=== PATIENT | male | born 1975 | race Caucasian/White ===

== ENCOUNTER 2017-04-21 11:33 | Emergency (ER) | payer OTHER ==
[2017-04-21 11:42] VITALS: TEMP 98.4; BMI 34.3
--- NOTE | 2017-04-21 12:27 | PDOC ---
History of Present Illness - General History Source: Patient, Old Records Exam Limitations: No Limitations <Lanny Calhoun - Last Filed: 04/21/17 16:12> - General History Source: Patient Exam Limitations: No Limitations - History of Present Illness Initial Comments: 04/21/17 12:36 The patient is a 42-year-old man, [employer] employee with a significant past medical history of hypercholesterolemia (diet controlled) who presents to the emergency department with complaints of shortness of breath since yesterday. He states that last night he suddenly felt short of breath with associated palpitations. He admits that he has a at home and has been drinking more coffee than usual, to help stay up and take care of his . He notes that his shortness of breath and palpitations are not triggered by exertional activity and come up abrupt, even at rest. He currently reports feeling mildly short of breath. No recent cough, fever, chills, recent travel. No chest pain, lightheadedness, dizziness. He denies fever, chills, cough, hemoptysis, diaphoresis, headache. He denies jaw/ back pain lower extremity pain/swelling, calf tenderness/pain He denies recent travel, recent surgery, recent immobilization. Allergies: No Known Drug Allergies Past surgical History: None reported Social History: Hookah smoker. Occasional EtOH use. No recreational drug use. <France Robertson - Last Filed: 04/21/17 16:15> - General Chief Complaint: Blood Pressure Problem Stated Complaint: HEART PALPITATIONS, EMPLOYEE Time Seen by Provider: 04/21/17 12:06 Past History - Past Medical History Other medical history: NONE - Psycho/Social/Smoking Cessation Hx Anxiety: No Suicidal Ideation: No Smoking History: Never smoked Have you smoked in the past 12 months: No Information on smoking cessation initiated: No Hx Alcohol Use: No Substance Use Type: None <Lanny Calhoun - Last Filed: 04/21/17 16:12> <France Robertson - Last Filed: 04/21/17 16:15> - Past Medical History Allergies/Adverse Reactions: Allergies Allergy/AdvReac Type Severity Reaction Status Date / Time No Known Allergies Allergy Verified 04/21/17 11:40 Review of Systems - Review of Systems Able to Perform ROS?: Yes Comments:: 04/21/17 12:36 GENERAL/CONSTITUTIONAL: No fever or chills. No weakness. HEAD, EYES, EARS, NOSE AND THROAT: No change in vision. No ear pain or discharge. No sore throat. CARDIOVASCULAR: Yes: Shortness of Breath. Palpitations. No chest pain. RESPIRATORY: No cough, wheezing, or hemoptysis. GASTROINTESTINAL: No nausea, vomiting, diarrhea or constipation. GENITOURINARY: No dysuria, frequency, or change in urination. MUSCULOSKELETAL: No joint or muscle swelling or pain. No neck or back pain. SKIN: No rash NEUROLOGIC: No headache, vertigo, loss of consciousness, or change in strength/ sensation. ENDOCRINE: No increased thirst. No abnormal weight change. HEMATOLOGIC/LYMPHATIC: No anemia, easy bleeding, or history of blood clots. ALLERGIC/IMMUNOLOGIC: No hives or skin allergy. <France Robertson - Last Filed: 04/21/17 16:15> *Physical Exam - Vital Signs Last Vital Signs Temp Pulse Resp BP Pulse Ox 98.4 F 81 18 157/109 100 04/21/17 11:41 04/21/17 11:41 04/21/17 11:41 04/21/17 11:41 04/21/17 11:41 <Lanny Calhoun - Last Filed: 04/21/17 16:12> - Vital Signs Last Vital Signs Temp Pulse Resp BP Pulse Ox 98.4 F 81 18 157/109 100 04/21/17 11:41 04/21/17 11:41 04/21/17 11:41 04/21/17 11:41 04/21/17 11:41 - Physical Exam Comments: 04/21/17 12:36 GENERAL: Awake, alert, and fully oriented, in no acute distress HEAD: No signs of trauma EYES: PERRLA, EOMI, sclera anicteric, conjunctiva clear ENT: Auricles normal inspection, hearing grossly normal, nares patent, oropharynx clear without exudates. Moist mucosa NECK: Normal ROM, supple, no lymphadenopathy, JVD, or masses LUNGS: Breath sounds equal, clear to auscultation bilaterally. No wheezes, and no crackles HEART: Regular rate and rhythm, normal S1 and S2, no murmurs, rubs or gallops ABDOMEN: Soft, nontender, normoactive bowel sounds. No guarding, no rebound. No masses EXTREMITIES: Normal range of motion, no edema. No clubbing or cyanosis. No cords, erythema, or tenderness NEUROLOGICAL: Cranial nerves II through XII grossly intact. Normal speech. <MarceloFrance - Last Filed: 04/21/17 16:15> ED Treatment Course - LABORATORY CBC & Chemistry Diagram: 04/21/17 12:35 04/21/17 12:35 - RADIOLOGY Radiology Studies Ordered: Category Date Time Status CHEST PA & LAT [RAD] Stat Radiology 04/21/17 12:17 Ordered <ShaquillebaileeLanny - Last Filed: 04/21/17 16:12> - LABORATORY CBC & Chemistry Diagram: 04/21/17 12:35 04/21/17 12:35 - RADIOLOGY Radiograph Interpretation: 04/21/17 16:14 EXAM: RAD/CHEST PA LAT CHEST Interpreted by Dr. Missy Barajas IMPRESSION: Frontal and lateral view of the chest is provided. Lung linares appear clear, without evidence of infiltrate or effusion. Cardiomediastinal silhouette is within normal limits. Visualized bony structures appear intact. <MarceloFrance - Last Filed: 04/21/17 16:15> Medical Decision Making - Medical Decision Making 04/21/17 12:26 42-year-old male with history of high cholesterol presents the emergency Department with complaints of shortness of breath and palpitations intermittently since last night. The patient is slightly hypertensive but is not to And is saturating 99% on room air. Differential diagnosis includes but is not limited to: Atypical presentation of ACS, CHF, pneumonia, electrolyte abnormality, anemia, toxic/metabolic derangement. Plan: 1. EKG 2. Labs 3. Chest x-ray 4. Observe and reevaluate 04/21/17 16:12 Addendum: Labs are reviewed and are noted in the EMR. The patient's EKG was normal sinus rhythm with no acute ST segment changes. Chest x-ray was normal. The plan is to discharge the patient home, follow up with primary care physician this week and return to the emergency department if symptoms persist, worsen, or new symptoms arise. <Lanny Calhoun - Last Filed: 04/21/17 16:12> *DC/Admit/Observation/Transfer - Discharge Dispostion Admit: No - Attestations Physician Attestion: 04/21/17 12:27 I, Dr. Lanny Calhoun, attest that the scribes documentation that appears above has been prepared under my direction and personally reviewed by me in its entirety. I confirmed that the note above accurately reflects all work, treatment, procedures, and medical decision-making performed by me. <Lanny Calhoun - Last Filed: 04/21/17 16:12> - Attestations Scribe Attestion: 04/21/17 12:36 Documentation prepared by France Robertson, acting as medical reviewer for Lanny Calhoun MD. <France Robertson - Last Filed: 04/21/17 16:15> Diagnosis at time of Disposition: Shortness of breath - Patient Instructions Printed Discharge Instructions: DI for High Blood Pressure Additional Instructions: Your blood pressure is slightly elevated. You need to follow-up with your primary care physician within the next week to reevaluate this. All of the studies done today were within acceptable parameters. Please return to the emergency department if your symptoms persist, worsen, or new symptoms arise.
[2017-04-21 12:43] LABS: BASOPHIL 0.7 % (0-2.0); EOSINOPHIL 1.3 % (0-4.5); MCH 29.3 pg (25.7-33.7); MCHC 33.8 g/dl (32.0-35.9); MEAN CELL VOLUME 86.5 fl (80-96); NEUTROPHILS 53.8 % (42.8-82.8); PLATELET COUNT 274 K/MM3 (134-434); RDW 14.3 % (11.9-15.9)
[2017-04-21 13:08] LABS: ANION GAP 11 (8-16); CALCIUM 8.9 mg/dL (8.5-10.1); CO2 25 mmol/L (21-32); COCKROFT - GAULT 138.59; CREATININE 0.9 mg/dL (0.7-1.3); GLUCOSE,RANDOM 111 mg/dL (74-106)
[2017-04-21 13:13] LABS: TROPONIN I < 0.02 ng/ml (0.00-0.05)
--- NOTE | 2017-04-21 16:13 | EKG ---
Test Reason : Blood Pressure : / mmHG Vent. Rate : 081 BPM Atrial Rate : 081 BPM P-R Int : 150 ms QRS Dur : 090 ms QT Int : 382 ms P-R-T Axes : 052 031 014 degrees QTc Int : 443 ms NORMAL SINUS RHYTHM NORMAL ECG NO PREVIOUS ECGS AVAILABLE Confirmed by VIRGIL CHAVEZ MD ([id number]) on 04/21/2017 4:12:49 PM Referred By: Confirmed By:VIRGIL CHAVEZ MD
[2017-04-21 16:23] VITALS: BP 156/98; PULSE 80
== END 2017-04-21 16:27 | disposition home or self-care (01) ==
LOC: JER 11:33
DX: I10 Essential (primary) hypertension (principal)
CPT/HCPCS: 36415; 71020-TC; 80048; 82550; 82553; 83880; 84484; 85025; 93005; 93010; 99281-25

== ENCOUNTER 2017-10-17 09:51 | Emergency (ER) | payer OTHER ==
[2017-10-17 10:01] VITALS: PULSE 65; TEMP 98.6; BMI 36.0
[2017-10-17 10:33] VITALS: BP 165/112
--- NOTE | 2017-10-17 10:45 | PDOC ---
Attending Attestation - Resident Resident Name: JagdishMonster - HPI HPI: 10/17/17 18:38 Pt presents to the ED complaining of asymptomatic hypertension. Patient has been checking his BP at work and found it to be high. - Physicial Exam PE: 10/17/17 18:40 Agree with resident exam. Patient is well appearing and in no acute distress. - Medical Decision Making 10/17/17 18:41 Pt presents to the ED complaining of hypertension. Patient is mildly hypertensive but asymptomatic in the Ed. Will discharge home with rx for norvasc and referral to PMD.
--- NOTE | 2017-10-17 11:13 | PDOC ---
History of Present Illness - General Chief Complaint: Blood Pressure Problem Stated Complaint: ELEVATED BP Time Seen by Provider: 10/17/17 10:27 - History of Present Illness Initial Comments: 10/17/17 11:22 42 yo M with h/o HTN who presents with high blood pressure. 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 Seen at [facility]SH ED for HTN and VARGAS. Patient not admitted, but advised to f/u with PCP for HTN control. Pt. reports that he has not had time to establish PCP.Now here with isolated HTN without symptoms of end organ damage. Denies VARGAS, N/V, chest pain, SOB, N/V, fevers/chill, hematuria, flank pain, abdominal pain, lightheadedness, weakness, or other asx. complaints. Pt. is concerned because he reports father dying at young age with HTN related disease. Past History - Past Medical History Allergies/Adverse Reactions: Allergies Allergy/AdvReac Type Severity Reaction Status Date / Time No Known Allergies Allergy Verified 10/17/17 09:57 Home Medications: Ambulatory Orders Amlodipine Besylate [Norvasc -] 5 mg PO DAILY #7 tablet 10/17/17 COPD: No Other medical history: DENIES. - Suicide/Smoking/Psychosocial Hx Smoking History: Never smoked Have you smoked in the past 12 months: No Hx Alcohol Use: No Substance Use Type: None Review of Systems - Review of Systems Comments:: 10/17/17 11:26 GENERAL/CONSTITUTIONAL: No fever or chills. No weakness. HEAD, EYES, EARS, NOSE AND THROAT: No change in vision. No ear pain or discharge. No sore throat.- CARDIOVASCULAR: No chest pain or shortness of breath RESPIRATORY: No cough, wheezing, or hemoptysis. GASTROINTESTINAL: No nausea, vomiting, diarrhea or constipation. GENITOURINARY: No dysuria, frequency, or change in urination. MUSCULOSKELETAL: No joint or muscle swelling or pain. No neck or back pain. SKIN: No rash NEUROLOGIC: No headache, vertigo, loss of consciousness, or change in strength/ sensation. ENDOCRINE: No increased thirst. No abnormal weight change HEMATOLOGIC/LYMPHATIC: No anemia, easy bleeding, or history of blood clots. ALLERGIC/IMMUNOLOGIC: No hives or skin allergy. *Physical Exam - Vital Signs Last Vital Signs Temp Pulse Resp BP Pulse Ox 98.6 F 65 19 165/112 100 10/17/17 09:57 10/17/17 09:57 10/17/17 09:57 10/17/17 10:32 10/17/17 09:57 - Physical Exam Comments: 10/17/17 11:27 GENERAL: Awake, alert, and fully oriented, in no acute distress. Anxious appearing. HEAD: No signs of trauma, normocephalic, atraumatic EYES: PERRLA, EOMI, sclera anicteric, conjunctiva clear ENT: Hearing grossly normal, nares patent, oropharynx clear without exudates. Moist mucosa NECK: Normal ROM, supple, no lymphadenopathy, JVD, or masses LUNGS: No distress, speaks full sentences, clear to auscultation bilaterally HEART: Regular rate and rhythm, normal S1 and S2, no murmurs, rubs or gallops, peripheral pulses normal and equal bilaterally. ABDOMEN: Soft, nontender, normoactive bowel sounds. No guarding, no rebound. No masses EXTREMITIES : Normal inspection, Normal range of motion, no edema. No clubbing or cyanosis. NEUROLOGICAL: Cranial nerves II through XII grossly intact. Normal speech, normal gait, no focal sensorimotor deficits. Absent JAZMINE, and dysmetira. SKIN: Warm, Dry, normal turgor, no rashes or lesions noted. Medical Decision Making - Medical Decision Making 10/17/17 11:30 42 yo M with h/o HTN who presents with asymptomatic HTN. 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 Seen at OSH ED for HTN and VARGAS 2 weeks [employer].Advised to f/u with PCP for HTN control, but reports not having time to establish PCP. Currently asymptomatic w/out symptoms of end organ damage. Denies VARGAS, N/V, chest pain, SOB, N/V, fevers/chill, hematuria, flank pain, abdominal pain, lightheadedness, weakness, or other asx. complaints. Physical exam reveals BP 159/113 and benign cardiac, pulm, and neuro exam. Patient with no s/s of HTN emergency or end organ damage. Patient will most likely benefit from usp lowering of BP and will be advised to establish primary care. ED Course: Norvasc 10 mg PO Norvasc 5 mg PO QD sent to pharmacy. 10/17/17 11:32 Discussed f/u with PCP ( Dr. Smith ). Patient stable and ready for D/c. *DC/Admit/Observation/Transfer Diagnosis at time of Disposition: HTN (hypertension), benign - Discharge Dispostion Disposition: HOME Condition at time of disposition: Stable Admit: No - Prescriptions Prescriptions: Amlodipine Besylate [Norvasc -] 5 mg PO DAILY #7 tablet - Referrals Referrals: Ramón Mari MD [Staff Physician] - - Patient Instructions Printed Discharge Instructions: DI for High Blood Pressure, How to Monitor Your Blood Pressure at Home Additional Instructions: Please return to the emergency department with any new or worsening symptoms or concerns. Please follow up with your primary care physician within the next 1 week for intermediate designer management of HTN. Please - Post Discharge Activity - Attestations Physician Attestion: 10/17/17 11:13 I attest to the documentation in this note.
[2017-10-17] MEDS ORDERED: amLODIPine BESYLATE 10 MG TABLET (FP) PO ONE (11:17)
[2017-10-17] MEDS ORDERED: amLODIPine BESYLATE 5 MG TABLET (FP) ONE (11:21)
== END 2017-10-17 11:30 | disposition home or self-care (01) ==
LOC: JER 09:51 → SUPCPDRO 09:51 → JER 11:30
DX: I10 Essential (primary) hypertension (principal)
CPT/HCPCS: 99283-25

== ENCOUNTER 2018-12-09 11:46 | Emergency (ER) | payer OTHER ==
[2018-12-09 12:16] VITALS: BMI 31.6
--- NOTE | 2018-12-09 12:18 | PDOC ---
Rapid Medical Evaluation Time Seen by Provider: 12/09/18 12:13 Medical Evaluation: Allergies Allergy/AdvReac Type Severity Reaction Status Date / Time No Known Allergies Allergy Verified 05/25/18 08:14 12/09/18 12:13 I performed a brief in-person evaluation of this patient. Chief complaint is: throat pain, fevers, bodyaches, abd pain, vomiting/diarrhea since yesterday Pertinent physical exam findings include: Pharynx mildly injected without exudates, no focal abdominal tenderness. T 102.9. I have ordered the following: Rapid flu, rapid strep Patient will proceed to the ED for further evaluation. Discharge Disposition - Diagnosis Flu-like symptoms - Referrals - Patient Instructions - Post Discharge Activity
[2018-12-09] MEDS ORDERED: ACETAMINOPHEN 500 MG TABLET (FP) PO ONE (12:57)
--- NOTE | 2018-12-09 13:06 | PDOC ---
History of Present Illness - General Chief Complaint: Vomiting/Diarrhea Stated Complaint: VOMITING/SORE THROAT Time Seen by Provider: 12/09/18 12:13 History Source: Patient Exam Limitations: Clinical Condition - History of Present Illness Initial Comments: 12/09/18 13:01 Patient with no significant past medical history present with complaint of sore throat, fever, body aches and headache since yesterday. Patient also reported nausea but no vomiting. Patient report 2 episodes of diarrhea. Patient denies any other symptoms Timing/Duration: 24 hours Past History - Past Medical History Allergies/Adverse Reactions: Allergies Allergy/AdvReac Type Severity Reaction Status Date / Time No Known Allergies Allergy Verified 05/25/18 08:14 Home Medications: Ambulatory Orders Amlodipine Besylate [Norvasc -] 5 mg PO DAILY #7 tablet 10/17/17 Guaifenesin [Robitussin] 10 ml PO QID #150 ml 05/25/18 Ibuprofen 800 mg PO TID #30 tablet 05/25/18 Amoxicillin/Potassium Clav [Augmentin 875-125 Tablet] 1 each PO BID 7 Days #14 tablet 12/09/18 Ipratropium [place] 2 spray NS BID PRN #1 spray 12/09/18 COPD: No HTN: Yes - Immunization History Immunization Up to Date: No - Suicide/Smoking/Psychosocial Hx Smoking History: Never smoked Have you smoked in the past 12 months: No Information on smoking cessation initiated: No Hx Alcohol Use: No Drug/Substance Use Hx: No Substance Use Type: None Review of Systems - Review of Systems Able to Perform ROS?: Yes Is the patient limited Gibraltarian proficient: No Constitutional: Yes: See HPI, Chills, Fever, Malaise HEENTM: Yes: Symptoms Reported, See HPI, Nose Congestion, Throat Pain. No: Eye Pain, Blurred Vision, Tearing, Recent change in vision, Double Vision, Cataracts , Ear Pain, Ocular Prothesis, Ear Discharge, Nose Pain, Tinnitus, Nose Bleeding , Hearing Loss, Throat Swelling, Mouth Pain, Dental Problems, Difficulty Swallowing, Mouth Swelling, Other Respiratory: No: Symptoms reported, See HPI, Cough, Orthopnea, Shortness of Breath, SOB with Exertion, SOB at Rest, Stridor, Wheezing, Productive cough, Hemoptysis, Other Cardiac (ROS): No: Symptoms Reported, See HPI, Chest Pain, Edema, Irregular Heart Rate, Lightheadedness, Palpitations, Syncope, Chest Tightness, Other ABD/GI: Yes: Diarrhea, Nausea. No: Constipated, Vomiting, Abdominal cramping All Other Systems: Reviewed and Negative *Physical Exam - Vital Signs Last Vital Signs Temp Pulse Resp BP Pulse Ox 102.9 F H 106 H 18 121/74 98 12/09/18 12:14 12/09/18 12:14 12/09/18 12:14 12/09/18 12:14 12/09/18 12:14 - Physical Exam Comments: 12/09/18 13:02 GENERAL: Well developed, well nourished. Awake and alert. No acute distress. HEENT: Mild pharyngeal erythema. Normocephalic, atraumatic. PERRLA, EOMI. No conjunctival pallor. Sclera are non-icteric. Moist mucous membranes. Oropharynx is clear. NECK: Supple. Full ROM. CARDIOVASCULAR: Regular rate and rhythm. No murmurs, rubs, or gallops. Distal pulses are 2+ and symmetric. PULMONARY: No evidence of respiratory distress. Lungs clear to auscultation bilaterally. No wheezing, rales or rhonchi. ABDOMINAL: Soft. Non-tender. Non-distended. No rebound or guarding. No organomegaly. Normoactive bowel sounds. MUSCULOSKELETAL Normal range of motion at all joints. EXTREMITIES: No cyanosis. . SKIN: Warm and dry. Normal capillary refill. No rashes. No jaundice. NEUROLOGICAL: Alert, awake, appropriate. Gait is normal without ataxia. PSYCHIATRIC: Cooperative. Good eye contact. Appropriate mood General Appearance: Yes: Nourished, Appropriately Dressed. No: Apparent Distress Moderate Sedation - Procedure Monitoring Vital Signs: Procedure Monitoring Vital Signs Temperature 102.9 F H 12/09/18 12:14 Pulse Rate 106 H 12/09/18 12:14 Respiratory Rate 18 12/09/18 12:14 Blood Pressure 121/74 12/09/18 12:14 O2 Sat by Pulse Oximetry (%) 98 12/09/18 12:14 Medical Decision Making - Medical Decision Making 12/09/18 13:03 Patient with no significant past medical history present with complaint of 24 hour history of nasal congestion, sore throat, headache, bodyaches, nausea and diarrhea. Exam significant for mild pharyngeal erythema. Lungs clear to auscultation bilateral. Patient with fever of 10 2F. Tylenol 1 g by mouth given for fever, rapid strep and rapid flu tests ordered. Treat based on lab results. 12/09/18 13:16 Rapid strep positive. Rapid flu negative. Patient is stable for outpatient treatment for strep pharyngitis with ENT follow-up as needed. Patient advised to increase fluid intake. *DC/Admit/Observation/Transfer Diagnosis at time of Disposition: Flu-like symptoms, Strep pharyngitis Fever Qualifiers: Fever type: unspecified Qualified Code(s): R50.9 - Fever, unspecified - Discharge Dispostion Disposition: HOME Condition at time of disposition: Stable Decision to Admit order: No - Prescriptions Prescriptions: Amoxicillin/Potassium Clav [Augmentin 875-125 Tablet] 1 each PO BID 7 Days #14 tablet Ipratropium [place] 2 spray NS BID PRN #1 spray PRN Reason: nasal congestion - Referrals Referrals: Jovany Schulz MD [Staff Physician] - - Patient Instructions Printed Discharge Instructions: Throat Culture Additional Instructions: Your rapid strep is positive. Your flu test is negative. Take medication as prescribed. Take Tylenol as needed for fever. Increase fluid intake. Follow-up referred ENT if symptoms persist for moderate of 4 days. Print Language: ROMANIAN - Post Discharge Activity Forms/Work/School Notes: Back to Work
[2018-12-09] MEDS ORDERED: ACETAMINOPHEN 500 MG TABLET (FP) ONE (13:08)
[2018-12-09 14:08] VITALS: BP 110/78; PULSE 100; TEMP 101
== END 2018-12-09 14:10 | disposition home or self-care (01) ==
LOC: JER 11:46
DX: R50.9 Fever, unspecified (principal); J02.0 Streptococcal pharyngitis
CPT/HCPCS: 87804; 87880; 99283-25